=== PATIENT | male | born 1960 | race Two or more races ===

== ENCOUNTER 2016-11-03 05:53 | Day surgery (SDC) | payer SELFPAY ==
[~2016-11-03 05:53] MED LIST: NO MEDICATION
== END 2016-11-03 14:10 ==
LOC: SRG 05:53 → SHSB 06:02 → ORE 08:38 → SHSB 10:59
PROC: 0HBAXZX Excision of Inguinal Skin, External Approach, Diagnostic (ICD-10-PCS; principal; 2016-11-03)
PROC: 0VTTXZZ Resection of Prepuce, External Approach (ICD-10-PCS; 2016-11-03)
PROC: 0T7D0ZZ Dilation of Urethra, Open Approach (ICD-10-PCS; 2016-11-03)
DX: N48.0 Leukoplakia of penis (principal); Z87.891 Personal history of nicotine dependence; Z90.49 Acquired absence of other specified parts of digestive tract
CPT/HCPCS: J0690